=== PATIENT | female | born 1980 | race Caucasian/White ===

== ENCOUNTER 2023-07-31 09:09 | Emergency (ER) | payer BC, OTHER ==
[~2023-07-31] VITALS: Ht 165.1 cm; Wt 63.2 kg
[2023-07-31 10:09] VITALS: BP 137/59; PULSE 91; RESP 16; TEMP 98.5; O2SAT 100
[2023-07-31] MEDS: KETOROLAC TROMETH 60MG/2ML VIAL IM ONE (10:26)
[2023-07-31] MEDS: HYDROcodone-ACET 5/325MG TAB PO ONE (10:29)
[2023-07-31] MEDS ORDERED: METH-1182 PO (10:46)
[2023-07-31] MEDS ORDERED: TRAM50TA2 PO (10:46)
== END 2023-07-31 10:51 | disposition home or self-care (01) ==
LOC: ER 09:09
DX: S29.012A Strain of muscle and tendon of back wall of thorax, initial encounter (principal); F17.210 Nicotine dependence, cigarettes, uncomplicated; Z88.8 Allergy status to other drugs, medicaments and biological substances; Z79.899 Other long term (current) drug therapy; X58.XXXA Exposure to other specified factors, initial encounter; Y93.89 Activity, other specified; Y92.89 Other specified places as the place of occurrence of the external cause; Y99.8 Other external cause status
CPT/HCPCS: 96372; 99283; J1885

== ENCOUNTER 2024-10-11 19:22 | Emergency (ER) | payer BC ==
[~2024-10-11] VITALS: Ht 167.6 cm; Wt 59.0 kg
[~2024-10-11 19:22] MED LIST: METH-1182 PO; TRAM50TA2 PO
[2024-10-11 19:28] VITALS: BP 115/54; RESP 24; TEMP 98.1; O2SAT 97
[2024-10-11 19:31] VITALS: PULSE 102
[2024-10-11] MEDS ORDERED: DICYCLOMINE HCL (10MG/ML) 2 ML AMPULE IM ONE (19:45)
[2024-10-11] MEDS ORDERED: SODIUM CHLORIDE 0.9% 1,000 ML IV ONE (19:45)
[2024-10-11] MEDS ORDERED: MORPHINE SULFATE 4 MG/ML SYR/VIAL IV ONE (19:45)
[2024-10-11] MEDS ORDERED: ONDANSETRON HCL 4 MG/2 ML VIAL IV ONE (19:45)
[2024-10-11 20:00] LABS: Basophils # (auto) 0 10 ^3/uL (0-0.2); Basophils % (auto) 0.2 % (0.0-2.0); Eosinophils # (auto) 0.1 10 ^3/uL (0-0.8); Eosinophils % (auto) 1.1 % (0.0-7.0); Hematocrit 38.3 % (36.0-46.0); Lymphocytes # (auto) 0.7 10 ^3/uL (0.4-5.4); Lymphocytes % (auto) 6.5 % (10.0-50.0); Mean Corpuscular Hemoglobin 30.3 pg (28.0-32.0); Mean Corpuscular Volume 89.2 fL (80.0-100.0); Monocytes # (auto) 0.7 10 ^3/uL (0-1.3); Monocytes % (auto) 6.1 % (0.0-12.0); Neutrophils # (auto) 9.6 10 ^3/uL (1.6-8.6); Neutrophils % (auto) 86.1 % (37.0-80.0); Platelet Count (auto) 245 10^3/uL (140-450); Red Blood Cells 4.29 10^6/uL (4.0-5.20); Red Cell Distribution Width 12.8 % (11.8-14.3); White Blood Cell 11.2 10^3/uL (4.4-10.8)
[2024-10-11 20:20] LABS: Albumin 4.3 g/dL (3.2-4.8); Alkaline Phosphatase 100 U/L (46-116); Anion Gap 9 (5-15); BUN/Creatinine Ratio 16.2 (10.0-20.0); Bilirubin, Total 0.6 mg/dL (0.2-1.0); Blood Urea Nitrogen 11 mg/dL (9-23); Calcium 9.5 mg/dL (8.7-10.4); Carbon Dioxide 20 mmol/L (20-31); Lipase 50 U/L (12-53); Potassium 3.6 mmol/L (3.5-5.1); Sodium 137 mmol/L (136-145); Total Protein 6.7 g/dL (5.7-8.2)
[2024-10-11 20:27] LABS: Alanine Aminotransferase 206 U/L (7-40); Aspartate Aminotransferase 358 U/L (13-40); Chloride 108 mmol/L (98-107); Glucose 130 mg/dL (74-106)
--- NOTE | 2024-10-11 21:58 | ED.PDOC ---
History of Present Illness HPI Comments 44-year-old female brought in by EMS from home complaining of severe epigastric pain radiating to both upper quadrants, both flanks and her mid back, onset about 1 hour ago. EMS reports patient has a history of atrial flutter, was in rapid AFib on their arrival, however converted to sinus tach by the time she arrived in the ER. She was administered Tylenol and Zofran p.o. by EMS. On arrival to ER, patient appears to be in a moderate distress, she denies any nausea, vomiting, diarrhea, constipation or shortness a breath. Patient states the pain radiates to her chest. History is limited due to the severity of symptoms. 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 Moist mucous membranes.) Neck: Full Range of Motion, Normal Inspection Respiratory: Lungs Clear, No Accessory Muscle Use, No Respiratory Distress, Normal Breath Sounds Cardiovascular: No Edema, No JVD, Tachycardia Breast Exam: Deferred Gastrointestinal: Diffuse, Soft, Tenderness Genitalia: Deferred Pelvic: Deferred Rectal: Deferred Extremities: Normal inspection, Normal range of motion, Non-tender, No pedal edema Neurologic: Alert (Oriented x4), Other (Ambulatory ) Cerebellar Function: NOT DONE Reflexes: NOT DONE Skin: Dry, Normal Color, Warm Lymphatic: NOT DONE Was a procedure done? Was a procedure done?: No EKG EKG : Comments Sinus tach, rate 102, normal intervals, normal axis, RSR in V1/V2, nonspecific T change. Differential Dx Considerations may include: Gastritis, gastroenteritis, ACS, TN, biliary tract disease, pancreatitis, aortic dissection, bowel obstruction, renal colic, among others X-Ray, Labs, Meds, VS Vital Signs Date Time Temp Pulse Resp B/P (MAP) Pulse Ox O2 Delivery O2 Flow Rate FiO2 10/11/24 19:31 102 10/11/24 19:28 98.1 115 24 115/54 (74) 97 98.1 Lab Test 10/11/24 19:47 Range/Units White Blood Count 11.2 H 4.4-10.8 10^3/uL Red Blood Count 4.29 4.0-5.20 10^6/uL Hemoglobin 13.0 12.2-16.2 g/dL Hematocrit 38.3 36.0-46.0 % Mean Corpuscular Volume 89.2 80.0-100.0 fL Mean Corpuscular Hemoglobin 30.3 28.0-32.0 pg Mean Corpuscular Hemoglobin Concent 34.0 32.0-36.0 g/dL Red Cell Distribution Width 12.8 11.8-14.3 % Platelet Count 245 140-450 10^3/uL Mean Platelet Volume 8.8 6.9-10.8 fL Neutrophils (%) (Auto) 86.1 H 37.0-80.0 % Lymphocytes (%) (Auto) 6.5 L 10.0-50.0 % Monocytes (%) (Auto) 6.1 0.0-12.0 % Eosinophils (%) (Auto) 1.1 0.0-7.0 % Basophils (%) (Auto) 0.2 0.0-2.0 % Neutrophils # (Auto) 9.6 H 1.6-8.6 10 ^3/uL Lymphocytes # (Auto) 0.7 0.4-5.4 10 ^3/uL Monocytes # (Auto) 0.7 0-1.3 10 ^3/uL Eosinophils # (Auto) 0.1 0-0.8 10 ^3/uL Basophils # (Auto) 0 0-0.2 10 ^3/uL Nucleated Red Blood Cells 0.0 % D-Dimer, Quantitative 0.46 0.0-0.49 mg/L FEU Sodium Level 137 136-145 mmol/L Potassium Level 3.6 3.5-5.1 mmol/L Chloride Level 108 H 98-107 mmol/L Carbon Dioxide Level 20 20-31 mmol/L Anion Gap 9 5-15 Blood Urea Nitrogen 11 9-23 mg/dL Creatinine 0.68 0.550-1.02 mg/dL Glomerular Filtration Rate Calc 110 >90 mL/min BUN/Creatinine Ratio 16.2 10.0-20.0 Serum Glucose 130 H 74-106 mg/dL Lactic Acid Level 1.3 0.4-2.0 mmol/L Calcium Level 9.5 8.7-10.4 mg/dL Total Bilirubin 0.6 0.2-1.0 mg/dL Aspartate Amino Transferase (AST) 358 H 13-40 U/L Alanine Aminotransferase (ALT) 206 H 7-40 U/L Alkaline Phosphatase 100 46-116 U/L Troponin I High Sensitivity < 3 L </=34 ng/L B-Type Natriuretic Peptide 11.07 0-100 pg/mL Total Protein 6.7 5.7-8.2 g/dL Albumin 4.3 3.2-4.8 g/dL Lipase 50 12-53 U/L Beta HCG, Quantitative 0.4 L 1.5-4.2 mIU/mL X-Ray, Labs, Meds, VS Comment 44-year-old female with a history of atrial flutter status post ablation brought in by EMS complaining of abdominal pain radiating to both flanks and to the back Vitals remarkable for heart rate 115, respiratory rate 24, blood pressure 115/54 Exam remarkable for severe distress, diffuse abdominal tenderness, tachycardia Rhythm strip independently interpreted by me: Sinus tach, rate 102, no ectopy. Chest x-ray and CT abdomen and pelvis ordered, patient eloped prior to completion CBC remarkable for WBC 11.2, CMP remarkable for AST 358, ALT 206, lipase normal, D-dimer negative BNP and troponin negative Following was ordered for the patient: 1 L 0.9 normal saline IV bolus, Zofran 4 mg IV, morphine 4 mg IV, Bentyl 20 mg IM While patient was in the lobby awaiting an ER bed, patient advised the staff member she was no longer going to wait, removed her own IV and eloped from the ED Time of 1ST Reevaluation: 20:00 Reevaluation 1ST: Eloped Patient Education/Counseling: Treatment Family Education/Counseling: No Family Present Departure 1 Departure Time of Disposition: 20:00 Impression: Primary Impression: Abdominal pain Qualified Codes: R10.9 - Unspecified abdominal pain Additional Impression: Transaminitis Disposition: 07 LEFT AWOL/ELOPED Condition: Fair Discharged With: Self Critical Care Note Critical Care Time?: No Stability Stability form required: No Heart Score Heart Score: Heart Score Response (Comments) Value History Slightly Suspicious 0 EKG Repolarization Disturb 1 Age <45 0 Risk Factors 1 or 2 risk factors 1 Troponin Normal limit 0 Total 2 RONNY BROWNLEE MD Oct 11, 2024 21:58
--- NOTE | 2024-10-12 02:03 | ECG ---
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
== END 2024-10-11 22:13 | disposition left against medical advice (07) ==
LOC: ER 19:22 → EDBD 19:22 → ER 22:13
DX: R74.01 Elevation of levels of liver transaminase levels (principal); F17.210 Nicotine dependence, cigarettes, uncomplicated; I48.91 Unspecified atrial fibrillation; Z90.721 Acquired absence of ovaries, unilateral; Z98.890 Other specified postprocedural states; Z79.899 Other long term (current) drug therapy; Z88.0 Allergy status to penicillin
CPT/HCPCS: 36415; 80053; 83605; 83690; 83880; 84484; 84702; 85025; 85379; 93005